=== PATIENT | male | born 1965 | race Caucasian/White ===

== ENCOUNTER 2019-02-10 15:39 | Emergency (ER) | payer BC ==
[2019-02-10] MEDS ORDERED: Lidocaine 1% with EPINEPHrine 1:100,000 50 ML MDV INFILT ONE (16:22)
[2019-02-10] MEDS ORDERED: Bacitracin Oint 1 GM U/D Packet TOP ONE (16:23)
--- NOTE | 2019-02-10 16:35 | EDM.PDOC ---
ED HPI GENERAL MEDICAL PROBLEM - General Chief Complaint: Laceration Stated Complaint: LEFT THIGH CUT WITH CHAIN SAW Time Seen by Provider: 02/10/19 16:15 Source of Information: Reports: Patient History Limitations: Reports: No Limitations - History of Present Illness INITIAL COMMENTS - FREE TEXT/NARRATIVE: 53-year-old male cut the anterior aspect of his left thigh with a chainsaw one hour ago. He has a transverse laceration that is fairly deep but is able to walk and has no distal paresthesia. Bleeding is controlled. Onset: Today Duration: Hour(s): (Less than one hour ago) Location: Reports: Lower Extremity, Left Associated Symptoms: Reports: No Other Symptoms Right Upper Leg Pain Score (Numeric/FACES): 8 - Related Data Allergies Allergy/AdvReac Type Severity Reaction Status Date / Time No Known Allergies Allergy Verified 02/10/19 16:01 Home Meds: Home Meds Aspirin [Halfprin] 81 mg PO DAILY 02/10/19 [History] Hydrocodone/Acetaminophen [Hydrocodon-Acetaminophen 5-325] 1 each PO Q6HR [History] amLODIPine Besylate [Amlodipine Besylate] 10 mg PO DAILY 02/10/19 [History] atorvaSTATin [Lipitor] 40 mg PO DAILY 02/10/19 [History] buPROPion HCl [Wellbutrin SR] 150 mg PO DAILY 02/10/19 [History] Past Medical History Cardiovascular History: Reports: High Cholesterol, Hypertension Musculoskeletal History: Reports: Arthritis Psychiatric History: Reports: Depression Social & Family History - Tobacco Use Smoking Status *Q: Never Smoker - Caffeine Use Caffeine Use: Reports: Coffee - Recreational Drug Use Recreational Drug Use: No ED ROS GENERAL - Review of Systems Review Of Systems: See Below Constitutional: Denies: Fever, Chills Respiratory: Denies: Shortness of Breath Cardiovascular: Denies: Chest Pain GI/Abdominal: Denies: Abdominal Pain, Nausea, Vomiting Neurological: Denies: Paresthesia ED EXAM, SKIN/RASH Exam: See Below Exam Limited By: No Limitations General Appearance: Alert, No Apparent Distress Respiratory/Chest: No Respiratory Distress Cardiovascular: Regular Rate, Rhythm Extremities: Other (Exam is otherwise limited to the left leg. The patient has a fairly deep transverse 9 cm laceration to the anterior aspect of the left thigh. After anesthetizing patient with 1% lidocaine and epinephrine, the wound was cleansed thoroughly with saline and was found to be through the subcutaneous tissue and penetrating the fascial layer of the quadriceps muscles. ) Neurological: Alert, Oriented, No Motor/Sensory Deficits (No distal paresthesias or significant motor deficits from injury) Course - Vital Signs Last Recorded V/S: Last Vital Signs Temp 97.1 F 02/10/19 16:05 Pulse 91 02/10/19 16:05 Resp 14 02/10/19 16:05 BP 144/85 H 02/10/19 16:05 Pulse Ox 96 02/10/19 16:05 - Orders/Labs/Meds Meds: Medications Discontinued Medications Generic Name Dose Route Start Last Admin Trade Name Georgeq PRN Reason Stop Dose Admin Bacitracin 1 dose 02/10/19 16:23 02/10/19 16:28 Bacitracin Oint 1 Gm TOP 02/10/19 16:24 1 dose ONETIME ONE Administration Lidocaine/Epinephrine 30 ml 02/10/19 16:22 02/10/19 16:27 Xylocaine 1% With Epinephrine 1:100,000 INFILT 02/10/19 16:23 50 ml ONETIME ONE Administration - Re-Assessments/Exams Free Text/Narrative Re-Assessment/Exam: 02/10/19 18:39 The wound was anesthetized with lidocaine with epinephrine, and washed thoroughly with saline. 2 4-0 Vicryl sutures were used to close the muscle fascia, 5 additional Vicryl sutures were used to close the underlying subcutaneous tissue. 14 more 4-0 Ethilon sutures were used to close the outside of the wound. Topical bacitracin was applied and a pressure dressing. He was discharged with cephalexin 500 mg 3 times a day for one week, and also given 10 hydrocodone for extra pain control. Departure - Departure Time of Disposition: 17:29 Disposition: Home, Self-Care 01 Clinical Impression: Laceration of leg Qualifiers: Encounter type: initial encounter Laterality: left Qualified Code(s): S81.812A - Laceration without foreign body, left lower leg, initial encounter - Discharge Information Instructions: Wound Care, Adult Referrals: PCP,None [Primary Care Provider] - Forms: ED Department Discharge Care Plan Goals: Keep wound covered and clean while healing. External sutures can be removed on February 22. Take antibiotic as prescribed until gone. Ibuprofen or naproxen will help with pain, add stronger pain medications if needed for breakthrough pain. Recheck sooner if concerns of infection or not healing satisfactorily. Increase activity as tolerated.
== END 2019-02-10 17:37 | disposition home or self-care (01) ==
LOC: JP.ED 15:39
DX: S81.812A Laceration without foreign body, left lower leg, initial encounter (principal); I10 Essential (primary) hypertension; E78.5 Hyperlipidemia, unspecified; F32.9 Major depressive disorder, single episode, unspecified; Z79.899 Other long term (current) drug therapy; Z79.82 Long term (current) use of aspirin; W29.3XXA Contact with powered garden and outdoor hand tools and machinery, initial encounter
CPT/HCPCS: 13121; 13122; 99282-25